=== PATIENT | male | born 1960 | race Caucasian/White ===

== ENCOUNTER → 2016-06-22 | Outpatient (CLI) | payer MEDICARE, OTHER | LOC: RAD 11:57 | DX: R10.817 Generalized abdominal tenderness (principal); R30.0 Dysuria; K59.1 Functional diarrhea | CPT/HCPCS: 74020 ==

== ENCOUNTER → 2020-02-15 | Outpatient (CLI) | payer MEDICARE, OTHER ==
[~2020-02-15] MED LIST: ALLERGY INJ INJ; AMARYL1 MG PO; ASPIR 8181 MG PO; AVODART 0.5 MG0.5 MG PO; BACTROBAN CREAM15 GM TOP; CRESTOR20 MG PO; DITROPAN 5 MG TA5 MG PO; HUMALOG100 UNIT/3 SC; HUMALOG100 UNIT/3 SQ; ISOSORBIDE MONO30 MG PO; LANTUS SOL100 UNIT/1 SQ; LANTUS100 UNIT/1 SC; LASIX20 MG PO; LITHIUM CARBON450 MG PO; LITHOBID C.R.300 MG PO; MELOXICAM7.5 MG PO; METOPROLOL TART25 MG PO; MIRAPEX0.25 MG PO; NEURONTIN600 MG PO; NITROSTAT0.4 MG SL; NYSTATIN-TRIAMC15 GM TOP; RANEXA1000 MG PO; RANEXA500 MG PO; TYLENOL 325MG325 MG PO; VENTOLIN HFA 66.7 GM INH; VOLTAREN 0.1%2.5 ML TOP; ZETIA 10 MG TAB10 MG PO
== END ==
LOC: HEART 5 01-10 11:00
DX: R07.89 Other chest pain (principal); R00.2 Palpitations; R00.0 Tachycardia, unspecified

== ENCOUNTER → 2020-05-13 | Outpatient (CLI) | payer MEDICARE, OTHER | LOC: HEART 5 08:00 | DX: I20.9 Angina pectoris, unspecified (principal); I50.30 Unspecified diastolic (congestive) heart failure | CPT/HCPCS: 78452; 93306; A9502; J2785 ==

== ENCOUNTER → 2020-06-17 | Outpatient (CLI) | payer MEDICARE, OTHER ==
[2020-06-17 08:12] LABS: HEMOGLOBIN 16.4 gm/dl (14.0-17.5); RED BLOOD COUNT 5.46 M/UL (4.20-5.50)
[2020-06-17 08:37] LABS: BUN/CREATININE RATIO 29 (0-10)
[2020-06-19 11:15] LABS: CHOLESTEROL, TOTAL 232 mg/dL (100-199); HDL-C 42 mg/dL (>39); HDL-P (TOTAL) 32.8 umol/L (>=30.5); LARGE HDL-P 6.2 umol/L (>=4.8); LARGE VLDL-P 21.9 nmol/L (<=2.7); LDL SIZE 20.2 nm (>20.5); LDL SIZE 20.2 nm (>=20.8); LDL-C 121 mg/dL (0-99); LDL-P 1699 nmol/L (<1000); LP-IR SCORE 90 (<=45); SMALL LDL-P 1069 nmol/L (<=527); TRIGLYCERIDES 393 mg/dL (0-149); VLDL SIZE 65.4 nm (<=46.6)
[2020-06-21 20:08] LABS: 25-HYDROXY, VITAMIN D 25 ng/mL (.); 25-HYDROXY, VITAMIN D-2 <1.0 ng/mL (.); 25-HYDROXY, VITAMIN D-3 25 ng/mL (.)
== END ==
LOC: LAB 07:20
PROVIDERS: Emergency Medicine
DX: E78.2 Mixed hyperlipidemia (principal); E11.65 Type 2 diabetes mellitus with hyperglycemia; I10 Essential (primary) hypertension; F33.1 Major depressive disorder, recurrent, moderate; E03.9 Hypothyroidism, unspecified; E55.9 Vitamin D deficiency, unspecified; E11.9 Type 2 diabetes mellitus without complications; R94.31 Abnormal electrocardiogram [ECG] [EKG]
CPT/HCPCS: 36415; 80053; 80061; 80178; 82043; 82306; 83036; 83704; 84443; 85027; 93005

== ENCOUNTER 2020-07-05 11:27 | Observation (INO) | payer MEDICARE, OTHER ==
[~2020-07-05] VITALS: Ht 188 cm; Wt 125.2 kg
[~2020-07-05 11:27] MED LIST changes: -AMARYL1 MG PO; -AVODART 0.5 MG0.5 MG PO; -CRESTOR20 MG PO; -HUMALOG100 UNIT/3 SC; -ISOSORBIDE MONO30 MG PO; -LITHIUM CARBON450 MG PO; -NEURONTIN600 MG PO; -RANEXA1000 MG PO
[2020-07-05 12:26] LABS: HEMOGLOBIN 16.2 gm/dl (14.0-17.5); RED BLOOD COUNT 5.38 M/UL (4.20-5.50); WHITE BLOOD COUNT 8.6 K/UL (4.5-11.0)
[2020-07-05 13:00] LABS: BUN/CREATININE RATIO 31 (0-10)
[2020-07-05] MEDS ORDERED: CRESTOR20 MG PO (14:04)
[2020-07-05] MEDS ORDERED: NEURONTIN600 MG PO (14:05)
[2020-07-05] MEDS ORDERED: LITHIUM CARBON450 MG PO (14:07)
[2020-07-05] MEDS ORDERED: AMARYL1 MG PO (15:51)
[2020-07-05] MEDS ORDERED: ISOSORBIDE MONO30 MG PO (15:52)
[2020-07-05] MEDS ORDERED: RANEXA500 MG PO (15:52)
[2020-07-05] MEDS ORDERED: AVODART 0.5 MG0.5 MG PO (15:52)
[2020-07-05] MEDS ORDERED: HUMALOG100 UNIT/3 SC (15:53)
[2020-07-05] MEDS ORDERED: RANEXA1000 MG PO (17:03)
== END 2020-07-05 18:14 | disposition home or self-care (01) ==
LOC: ER1 11:27 → CDU 13:42 → M/S 14:36
PROVIDERS: ADMIT Internal Medicine Infectious Disease
DX: R07.89 Other chest pain (principal); R00.2 Palpitations; I10 Essential (primary) hypertension; I25.10 Atherosclerotic heart disease of native coronary artery without angina pectoris; E11.65 Type 2 diabetes mellitus with hyperglycemia; E11.42 Type 2 diabetes mellitus with diabetic polyneuropathy; F31.9 Bipolar disorder, unspecified; N40.0 Benign prostatic hyperplasia without lower urinary tract symptoms; E78.5 Hyperlipidemia, unspecified; G47.33 Obstructive sleep apnea (adult) (pediatric); R06.89 Other abnormalities of breathing; E66.9 Obesity, unspecified; Z68.35 Body mass index [BMI] 35.0-35.9, adult; Z20.822 Contact with and (suspected) exposure to COVID-19; Z87.891 Personal history of nicotine dependence; Z88.0 Allergy status to penicillin; Z88.8 Allergy status to other drugs, medicaments and biological substances; Z79.82 Long term (current) use of aspirin; Z79.4 Long term (current) use of insulin; Z79.899 Other long term (current) drug therapy; Z95.5 Presence of coronary angioplasty implant and graft
CPT/HCPCS: 71045; 80053; 82550; 82553; 83735; 83874; 83880; 84443; 84484; 85025; 93005; 99285; G0378; U0002

== ENCOUNTER → 2020-08-07 | Outpatient (CLI) | payer MEDICARE, OTHER ==
[~2020-08-07] MED LIST changes: +AMARYL1 MG PO; +AVODART 0.5 MG0.5 MG PO; +CRESTOR20 MG PO; +HUMALOG100 UNIT/3 SC; +ISOSORBIDE MONO30 MG PO; +LITHIUM CARBON450 MG PO; +NEURONTIN600 MG PO; +RANEXA1000 MG PO
== END ==
LOC: EXRD 12:48
DX: I73.9 Peripheral vascular disease, unspecified (principal); R60.9 Edema, unspecified; M79.606 Pain in leg, unspecified
CPT/HCPCS: 93922; 93925; 93970

== ENCOUNTER 2020-12-02 18:48 | Emergency (ER) | payer MEDICARE, OTHER ==
[2020-12-02 19:59] LABS: HEMOGLOBIN 14.3 gm/dl (14.0-17.5); RED BLOOD COUNT 4.81 M/UL (4.20-5.50); WHITE BLOOD COUNT 7.7 K/UL (4.5-11.0)
[2020-12-02 20:19] LABS: BUN/CREATININE RATIO 29 (0-10)
[2020-12-02] MEDS ORDERED: AMARYL1 MG PO (21:13)
== END 2020-12-02 22:43 | disposition home or self-care (01) ==
LOC: ER1 18:48
PROVIDERS: Physician Assistant Medical
DX: E11.65 Type 2 diabetes mellitus with hyperglycemia (principal); I10 Essential (primary) hypertension; Z76.0 Encounter for issue of repeat prescription; E66.9 Obesity, unspecified; Z88.0 Allergy status to penicillin
CPT/HCPCS: 36600; 80053; 81001; 82009; 82550; 82553; 82803; 83874; 84484; 85025; 93005; 99284

== ENCOUNTER → 2021-01-10 | Outpatient (CLI) | payer MEDICARE, OTHER ==
[2021-01-10 08:36] LABS: BUN/CREATININE RATIO 16 (0-10)
== END ==
LOC: LAB 07:56
PROVIDERS: Emergency Medicine
DX: E11.65 Type 2 diabetes mellitus with hyperglycemia (principal); E78.2 Mixed hyperlipidemia; I10 Essential (primary) hypertension; F33.1 Major depressive disorder, recurrent, moderate
CPT/HCPCS: 36415; 80053; 80178; 83036; 84443; 84550

== ENCOUNTER → 2021-04-16 | Outpatient (CLI) | payer MEDICARE, OTHER ==
[2021-04-16 15:53] LABS: BUN/CREATININE RATIO 21 (0-10)
== END ==
LOC: LAB 14:59
PROVIDERS: Emergency Medicine
DX: R30.0 Dysuria (principal); R35.0 Frequency of micturition; R39.15 Urgency of urination; N30.00 Acute cystitis without hematuria
CPT/HCPCS: 36415; 80053; 84153